=== PATIENT | male | born 1930 ===

== ENCOUNTER 2018-11-08 05:49 | Emergency (ER) | payer OTHER ==
[~2018-11-08] VITALS: Ht 167.6 cm; Wt 81.6 kg
[~2018-11-08 05:49] MED LIST: FINASTERIDE5 MG; FLOMAX; LEVSIN0.125 MG; PEPCID20 MG; VASOTEC10 MG
== END 2018-11-08 14:06 | disposition home or self-care (01) ==
LOC: ER 05:49
DX: J09.X2 Influenza due to identified novel influenza A virus with other respiratory manifestations (principal)

== ENCOUNTER 2020-10-30 16:34 | Emergency (ER) | payer OTHER ==
[~2020-10-30] VITALS: Ht 172.7 cm; Wt 79.4 kg
== END 2020-10-31 13:50 | disposition home or self-care (01) ==
LOC: ER 16:34
DX: R14.0 Abdominal distension (gaseous) (principal); K56.7 Ileus, unspecified; K31.89 Other diseases of stomach and duodenum; R11.0 Nausea; R33.0 Drug induced retention of urine; T47.6X5A Adverse effect of antidiarrheal drugs, initial encounter; N28.1 Cyst of kidney, acquired; D72.828 Other elevated white blood cell count; E86.0 Dehydration; E87.8 Other disorders of electrolyte and fluid balance, not elsewhere classified; Y92.89 Other specified places as the place of occurrence of the external cause

== ENCOUNTER 2020-11-27 07:44 | Outpatient (CLI) | payer OTHER | END 2020-11-27 07:49 | disposition home or self-care (01) | LOC: RX STUDY 07:44 | PROVIDERS: ATTEND Internal Medicine Gastroenterology | DX: R10.9 Unspecified abdominal pain (principal) ==

== ENCOUNTER 2021-07-10 12:00 | Emergency (ER) | payer OTHER ==
[~2021-07-10] VITALS: Ht 172.7 cm; Wt 79.8 kg
== END 2021-07-10 17:33 ==
LOC: ER 12:00
DX: R07.89 Other chest pain (principal); G47.39 Other sleep apnea; R06.02 Shortness of breath; Z20.822 Contact with and (suspected) exposure to COVID-19